=== PATIENT | male | born 1955 | race Caucasian/White ===

== ENCOUNTER → 2016-09-17 | Outpatient (CLI) | payer BC, OTHER ==
[~2016-09-17] MED LIST: CELEBREX 200 M200 M1 PO; FENTANYL PA25 MCG/HR TD; FISHOIL; GLUCOSAMINE &1 EACH PO; MOTRIN 600 MG600 M1 OR; NORCO 5-325 TA1 EACH PO; TRAMADOL 50 MG50 MG PO; VALIUM5 MG PO
== END ==
LOC: RAD 12:04
DX: M25.571 Pain in right ankle and joints of right foot (principal)

== ENCOUNTER → 2017-11-24 | Outpatient (CLI) | payer OTHER | LOC: CAT 13:53 | DX: Z13.6 Encounter for screening for cardiovascular disorders (principal); E78.00 Pure hypercholesterolemia, unspecified ==

== ENCOUNTER → 2019-10-03 | Outpatient (CLI) | payer OTHER ==
[~2019-10-03] VITALS: Ht 185.4 cm; Wt 95.3 kg
[~2019-10-03] MED LIST changes: +ALPRAZOLAM 0.0.25 M1 PO
[2019-10-03 09:53] VITALS: BP 138/75
--- NOTE | 2019-10-03 10:40 | NUR ---
Pain Clinic Assessment: 1. History of Osteoarthritis: NONE History of Rheumatoid Arthritis: Not Applicable 2. Height: 6 ft. 1 in. 185.4 cm. Weight: 210.0 lb. oz. 95.256 kg. Patient's BMI: 27.7 3. Vital Signs: BP: 138/75 Pulse: 85 Resp: 18 Temp: 02 Sat: 97 ECG Mon: 4. Pain Intensity: 2 5. Fall Risk: Dizziness: N Needs help standing or walking: N Fallen in the last 3 months: N Fall risk comments: 6. Patient on Blood Thinner: None 7. History of Hypertension: N 8. Opioid Therapy greater than 6 weeks: Y Opiate Contract Signed: 9. Risk Assessment Tool Provided: NONE 10. Functional Assessment Tool: 11. Recreational Drug Use: Never Drug Type: Tobacco Use: Never Smoker Tobacco Type: Amount or Packs/day: How Many Years: Alcohol Use: Yes Frequency: Weekly Quant: 10-15
--- NOTE | 2019-10-04 13:20 | HPC ---
[facility] [address] [place] [address] PAIN MANAGEMENT CONSULTATION Name: JOCELYNE LYNN Room #: REG [facility]#: [id number] Admission: 10/03/19 Attend Phys: Lucas Baker DO Discharge: Date of : 53 Report #: [id number] THIS REPORT FOR: cc: Alfonso Wynn MD, Rene P. MD Johnson, James E. DO ~ DATE OF SERVICE: 10/03/2019 CHIEF COMPLAINT: Low back pain, left lower extremity pain with paresthesias. HISTORY OF PRESENT ILLNESS: As you know, the patient is a very pleasant 63-year-old male with longstanding history of lumbar radicular symptoms involving the left lower extremity. The patient states pain has been present since 1999. He denies specific injury or trauma that may have led to symptom development. He reports he has a diagnosis of L5-S1 spondylolisthesis with central canal stenosis, which is believed to be the source of the symptoms. The patient has undergone epidural injections with good efficacy in the past. He indicates pain improvement of about 60-80% depending on the practitioner that provides the injections. He has been referred to our service to discuss continuation of epidural injections and other treatment options for lumbar radiculopathy. The patient indicates pain today is periodic. He describes the pain as cramping, aching, sharp and stabbing with intermittent numbness and tingling. He places his current pain score 2/10. Daily average of 2-3/10. Worst pain has been 4-5/10. The patient states that standing tends to exacerbate symptoms. He also indicates recently over the last month lying supine has even increased his pain. He believes that walking, bicycling, stretching and medications do improve overall pain. He states he takes hydrocodone once to twice a day with good efficacy. He has been referred to our service to discuss treatment options for lumbar radiculopathy. PAST MEDICAL HISTORY: 1. Degenerative joint disease. 2. Osteoarthritis. PAST SURGICAL HISTORY: Tonsillectomy, adenoidectomy 1959. Ankle arthroscopy on the right 1992, left total hip resurfacing 2005, left laparoscopic inguinal herniorrhaphy in 2009, right Star ankle replacement in 2012, right arthroscopy and repair of a torn biceps and supraspinatus tendon 2012. SOCIAL HISTORY: The patient denies tobacco, IV or illicit drug use. Admits to approximately 10 alcohol beverages per week. He is currently employed as medical doctor. He is working, not receiving workmen's compensation or is trying to obtain discrete benefits. He is not in litigation in regards to pain. [address] [address] PAIN MANAGEMENT CONSULTATION Name: JOCELYNE LYNN [id number] Admission: 10/03/19 Attend Phys: Lucas Baker DO Discharge: Date of : 53 Report #: [id number] He is unaccompanied at today's visit. REVIEW OF SYSTEMS: Positive only for numbness and tingling sensations, chronic ankle and hip pain. All other review of systems negative per 12-point review of systems other than those listed in history of present illness. Pain impact score 11 of 70 indicating mild interference of daily activities secondary to pain. ALLERGIES: NO REPORTED DRUG ALLERGIES. CURRENT MEDICATIONS: Alprazolam 0.25 mg p.o. at bedtime, hydrocodone/acetaminophen 5/325 one tab every 12 hours p.r.n. for pain, tramadol 50 mg up to 3 times a day p.r.n. pain. IMAGING: There is no imaging available. PQRS: The patient has known arthritic changes of the lumbar spine, bilateral hips and left ankle. No rheumatoid arthritis. The patient is placing pain intensity 2/10. He is not a fall risk, has not had a fall in last 3 months. He is not on blood thinners, nor is he treated for hypertension. He is on chronic opioids and has a low opioid addiction potential based on our assessment tool. Pain impact is 11/70, mild interference of daily activities secondary to pain. PHYSICAL EXAMINATION: VITAL SIGNS: Blood pressure 138/75, pulse 85, respiratory rate 18 and unlabored. The patient is 97% on room air, height 6 feet 1 inch tall, weight 210 pounds, BMI calculated 27.7. GENERAL: Well-developed, well-nourished, well-hydrated 63-year-old male appearing stated age. He is in no acute distress, awake, alert and oriented x 3. Current pain score is rated at 2/10. HEENT: Normocephalic, atraumatic. Pupils equal, round and reactive. NEUROLOGIC: Speech is fluent. The patient deemed an excellent historian. EXTREMITIES: Show no clubbing, no cyanosis, and no edema. MUSCULOSKELETAL: Lower extremity strength appears symmetrical 5/5. He is intact to light touch from L1 through S2 dermatomes. Gait is antalgic favoring left lower extremity over right. Seated straight leg raising negative. Supine straight leg raising is positive on the left. Aminta's test is negative. Modified Gaenslen's positive for axial low back pain. Ankle clonus negative. Babinski is negative. ASSESSMENT: 1. Symptomatic lumbar radiculopathy. 2. Lumbosacral spondylosis with radiculopathy. 3. Chronic low back pain. [facility] [address] [place] [address] PAIN MANAGEMENT CONSULTATION Name: JOCELYNE LYNN Room #: REG [facility]#: [id number] Admission: 10/03/19 Attend Phys: Lucas Baker DO Discharge: Date of : 53 Report #: [id number] PLAN: 1. The patient has been referred to our service to discuss treatment options for lumbar radiculopathy. We have discussed with the patient that lumbar radicular symptoms can be treated in various ways. The following was discussed with the patient on treatment options. We discussed physical therapy, stretching exercises and core strengthening as a treatment option. We discussed medication management utilizing neuropathic pain medications such as nortriptyline, amitriptyline, Cymbalta, Lyrica or gabapentin. We discussed epidural injections under fluoroscopic guidance, spinal cord stimulator and ultimately surgical decompression. After reviewing the risks and benefits of all proposed treatment options, the patient chose to look forward to a lumbar epidural injection under fluoroscopic guidance. 2. The patient was advised risks and benefits of a lumbar epidural injection. His risks include but are not necessarily limited to bleeding, bruising, infection, worsening pain, no relief of pain, also risk of temporary or permanent muscle weakness, temporary or permanent nerve damage, possible paralysis, post-dural puncture headache and . The patient states understood and wished to proceed. 3. No medication changes made at today's visit. The patient states that by taking 2 hydrocodone a day, his pain is well controlled. We recommend the patient continue this therapy. He will follow up with the prescribing physician for future refills of the therapy. 4. We will see the patient back in followup visit on an as needed basis for possible next in the series of lumbar epidural injections. We are hopeful the patient will see good and prolonged benefit with today's procedure. DESCRIPTION OF PROCEDURE: L4-L5 left paramedian epidural steroid injection under fluoroscopic guidance. After obtaining written consent, the patient was taken back to fluoroscopy suite, placed in prone position with pillow under abdomen to decrease lumbar lordosis. Skin overlying lumbosacral area then prepped and draped in aseptic fashion. The L4-L5 vertebral interspace identified by AP fluoroscopy. Skin and subcutaneous tissue overlying target site injection anesthetized with 3 mL of 1% lidocaine. A 20-gauge 3-1/2 inch Tuohy needle advanced under fluoroscopic guidance towards the epidural space using a left paramedian approach. Epidural space identified using loss of resistance to air technique. After negative aspiration for heme or cerebrospinal fluid, 1 mL of Omnipaque was injected. Lumbar epidurogram was confirmed using both AP and lateral fluoroscopy. After negative aspiration for heme or cerebrospinal fluid, 5 mL of a solution containing 2 mL 40 mg per mL, 80 mg total triamcinolone along with 3 mL lidocaine 1% injected slowly. Needle then retracted approximately half way, flushed with 1 mL of 1% lidocaine and removed. Sterile bandage placed over injection site. There were no new motor [address] [address] PAIN MANAGEMENT CONSULTATION Name: JOCELYNE LYNN Room #: REG [facility]#: [id number] Admission: 10/03/19 Attend Phys: Lucas Baker DO Discharge: Date of : 53 Report #: [id number] deficits present in the lower extremity following procedure. The patient tolerated the procedure well, carefully escorted to recovery room in stable condition. No apparent complications. After meeting discharge criteria, the patient discharged home. <ELECTRONICALLY SIGNED> By: Lucas Baker DO 10/04/19 [id number] Lucas Baker DO /nt
== END | disposition home or self-care (01) ==
LOC: PAIN 06:48
PROVIDERS: ATTEND Anesthesiology Pain Medicine
DX: M47.27 Other spondylosis with radiculopathy, lumbosacral region (principal); G89.29 Other chronic pain; M54.5 Low back pain; I10 Essential (primary) hypertension; M19.90 Unspecified osteoarthritis, unspecified site; Z98.890 Other specified postprocedural states; Z79.899 Other long term (current) drug therapy

== ENCOUNTER → 2020-03-14 | Outpatient (CLI) | payer OTHER | LOC: LAB 10:15 | PROVIDERS: ATTEND Student in an Organized Health Care Education/Training Program | DX: Z01.812 Encounter for preprocedural laboratory examination (principal); Z20.828 Contact with and (suspected) exposure to other viral communicable diseases ==

== ENCOUNTER 2020-04-20 07:20 | Emergency (ER) | payer OTHER ==
[~2020-04-20] VITALS: Ht 182.9 cm; Wt 86.2 kg
[2020-04-20 07:25] VITALS: BP 140/81
== END 2020-04-20 08:04 | disposition home or self-care (01) ==
LOC: ER 07:20
DX: R09.89 Other specified symptoms and signs involving the circulatory and respiratory systems (principal); Z20.828 Contact with and (suspected) exposure to other viral communicable diseases; Z96.661 Presence of right artificial ankle joint; Z98.890 Other specified postprocedural states; Z79.899 Other long term (current) drug therapy